=== PATIENT | female | born 1955 | race Caucasian/White ===

== ENCOUNTER 2016-11-30 16:01 | Outpatient (CLI) | payer OTHER | END 2016-11-30 16:02 | disposition home or self-care (01) | DX: R05 Cough (principal) ==

== ENCOUNTER 2019-03-02 04:17 | Outpatient (CLI) | payer OTHER | END 2019-03-02 04:18 | disposition critical access hospital (66) | LOC: EMS 04:17 | PROVIDERS: ATTEND Surgery | DX: T42.4X2A Poisoning by benzodiazepines, intentional self-harm, initial encounter (principal) | CPT/HCPCS: A0425; A0427 ==

== ENCOUNTER 2019-03-02 04:46 | Observation (INO) | payer OTHER ==
[2019-03-02] MEDS ORDERED: OLANZapine 10 MG VIAL IM STA (05:04)
--- NOTE | 2019-03-02 05:04 | ED Physician Documentation ---
<Dusty Calabrese - Last Filed: 03/03/19 03:52> PD HPI OVERDOSE - Stated complaint Stated Complaint: OD - Chief complaint Chief Complaint: MHE - History obtained from History obtained from: Family, EMS, Police - History of Present Illness Timing - onset: Enter time (03:15), Today Subtance(s) ingested: Single Associated symptoms: Decreased responsiveness, Altered mental status, Agitated Treatment ANESTHESIOLOGIST/PHYSICIAN: Narcan Similar symptoms before: Has not had sx before Recently seen: Not recently seen - Additional information Additional information: Patient cannot contribute to HPI/ROS due to severe AMS. HPI is from , EMS, and police. A few weeks ago, found out that patient had cheated on him many years ago. Over the past week, he had become increasingly upset over this and was asking her details about the incident with increasing frequency and intensity. He feels remorse over doing this; he says this is why she overdosed tonight. At approximately 3:15 AM this morning, patient reported to that she had overdosed and he called 911. Per police report, they arrived to find patient awake but drowsy; she told police that she had taken approximately 50 tablets of 0.5mg lorazepam (bottle that was brought to ED and is empty indicates it was filled in 2014 and only 20 tablets, but daughter says patient has horded medications in the past). Patient told police that she had planned to next overdose on blood pressure medications. Patient rapidly became increasingly drowsy and then stopped responding verbally. Medics arrived to find patient not responding verbally nor following any commands nor opening her eyes, but she was flailing and straining against attempts to restrain her, and she is thus brought to ED in 4-point restraints. She was given narcan en route with no effect. is unsure of what medications patient is prescribed. He has cancer as well as other medical problems and thus has a number of medications in the house; he is confident that she did not fall/hit head, and feels it is unlikely that she took any of his medications. Review of Systems Unable to obtain: Unresponsive PD PAST MEDICAL HISTORY - Past Medical History Other Past Medical History: unknown - Present Medications Home Medications: Ambulatory Orders Medication Instructions Recorded Confirmed Amitriptyline [Elavil] 30 mg PO QPM 03/02/19 03/02/19 Codeine/Butalbital/ASA/Caffein 1 - 2 cap PO Q4H PRN MDD 6 caps 03/02/19 03/02/19 [Butalbital Comp-Codeine #3 Cap] Estradiol [Climara 0.1 mg] 1 each TD Q7D 03/02/19 03/02/19 Gabapentin [Neurontin] 600 mg PO HS 03/02/19 03/02/19 Hydroxychloroquine [Plaquenil] 300 mg PO DAILY 03/02/19 03/02/19 - Allergies Allergies/Adverse Reactions: Allergies Allergy/AdvReac Type Severity Reaction Status Date / Time clavulanic acid Allergy Anaphylaxis Verified 03/02/19 15:51 promethazine [From Phenergan] Allergy Anaphylaxis Verified 03/02/19 15:51 diphenhydramine AdvReac Rash Verified 03/02/19 15:51 [From Benadryl] - Living Situation Living Situation: reports: With spouse/s.o. Living Arrangement: reports: At home - Social History Does the pt drink ETOH?: Yes PD ED PE NORMAL - Vitals Vital signs reviewed: Yes - General General: Well developed/nourished, Other (straining against restraints but nonverbal, does not open eyes, and does not follow commands. ) - HEENT HEENT: Atraumatic, PERRL, Moist mucous membranes - Cardiac Cardiac: No murmur - Respiratory Respiratory: No respiratory distress, Clear bilaterally - Abdomen Abdomen: Normal bowel sounds, Soft, Non distended - Derm Derm: Normal color, Warm and dry - Extremities Extremities: No edema PD ED PE EXPANDED - Cardiac Cardiac: Regular Rate, Tachy - GCS Eye Opening: None Motor: Localizes to Pain Verbal: None Total: 7 Results - EKG (time done) 09:25 Rhythm: Other PD MEDICAL DECISION MAKING - ED course Complexity details: reviewed results, re-evaluated patient, considered differential, d/w family ED course: given zyprexa 5mg IM shortly after arrival; this was given for sedation so that she doesn't continue to strain against restraints (could cause rhabdomyolysis). CASEY form indicates she receives regular prescriptions from PMD for butalbital/codeine. Family eventually found a card in her wallet with handwritten note indicating allergies to augmentin and phenergan, "sensitive" to benadryl. It lists her medications as hydroxycholroquine, amitryptilene, gabapentin, and "certrazine". Patient's care turned over to oncoming ED physician (Dr. Garcia) at end of my shift Departure - Departure Disposition: ED Place in Observation Clinical Impression: Attempted suicide Drug overdose Qualifiers: Encounter type: initial encounter Injury intent: undetermined intent Qualified Code(s): T50.904A - Poisoning by unspecified drugs, medicaments and biological substances, undetermined, initial encounter Discharge Date/Time: 03/02/19 17:28 <Parish Garcia - Last Filed: 03/03/19 10:27> Results - Vitals Vitals: Vital Signs - 24 hr 03/02/19 03/02/19 03/02/19 11:10 12:15 12:58 Heart Rate 105 H 78 84 Respiratory 19 14 16 Rate Blood Pressure 155/80 H 111/66 113/65 O2 Saturation 96 100 98 03/02/19 03/02/19 13:15 13:49 Heart Rate 79 77 Respiratory 15 16 Rate Blood Pressure 113/63 126/80 O2 Saturation 100 100 Oxygen O2 Source Room air - EKG (time done) 09:25 Rate: Rate (enter#) (90) Rhythm: NSR, Other (Premature atrial complex) [place]: Normal Intervals: Normal OR, QRS normal QRS: LVH Ischemia: Normal ST segments Computer interpretation: Agree with computer - Labs Labs: Laboratory Tests 03/02/19 03/02/19 03/02/19 05:27 05:27 08:36 WBC 7.7 RBC 4.42 Hgb 14.3 Hct 42.8 MCV 96.7 MCH 32.2 H MCHC 33.4 RDW 14.6 Plt Count 302 MPV 7.8 L Neut # (Auto) 5.5 Lymph # (Auto) 1.5 [place] # (Auto) 0.6 Eos # (Auto) 0.1 Baso # (Auto) 0.1 Absolute Nucleated RBC 0.01 Nucleated RBC % 0.1 Sodium 139 Potassium 3.7 Chloride 100 L Carbon Dioxide 24 Anion Gap 15.0 H BUN 14 Creatinine 0.6 Estimated GFR (MDRD) 101 Glucose 109 H Calcium 9.1 Total Bilirubin 0.8 AST 29 ALT 28 Alkaline Phosphatase 55 Total Protein 7.0 Albumin 4.5 Globulin 2.5 Albumin/Globulin Ratio 1.8 Lipase 26 Urine Color YELLOW Urine Clarity CLEAR Urine pH 6.5 Ur Specific [place] 1.015 Urine Protein NEGATIVE Urine Glucose (UA) NEGATIVE Urine Ketones 40 H Urine Occult Blood NEGATIVE Urine Nitrite NEGATIVE Urine Bilirubin NEGATIVE Urine Urobilinogen 0.2 (NORMAL) Ur Leukocyte Esterase NEGATIVE Ur Microscopic Review NOT INDICATED Urine Culture Comments NOT INDICATED Salicylates < 6.0 Urine Opiates Screen POSITIVE H Ur Oxycodone Screen NEGATIVE Urine Methadone Screen NEGATIVE Ur Propoxyphene Screen NEGATIVE Acetaminophen < 10 L Ur Barbiturates Screen POSITIVE H Ur Tricyclics Screen POSITIVE H Ur Phencyclidine Scrn NEGATIVE Ur Amphetamine Screen NEGATIVE U Methamphetamines Scrn NEGATIVE U Benzodiazepines Scrn POSITIVE H Urine Cocaine Screen NEGATIVE U Cannabinoids Screen POSITIVE H Ethyl Alcohol < 5.0 PD MEDICAL DECISION MAKING - ED course ED course: At change of shift the patient's care was turned over to me for continued evaluation and treatment of her medical condition, and eventual mental health e valuation. After several more hours of observation, the patient remained somnolent, responding to noxious stimulation only. There was no coherent verbal response. She would move all extremities, with no lateralizing signs. She remained hemodynamically stable. It became clear that she would require more time for mental status clearing that would be reasonable to hold her in the emergency department. I discussed her condition with Dr. Davidson, who accepts her for further evaluation and treatment.
[2019-03-02 05:36] LABS: BASOPHILS # (AUTO) 0.1 10^3/uL (0.0-0.1); BASOPHILS % (AUTO) 0.7 %; EOSINOPHILS # (AUTO) 0.1 10^3/uL (0.0-0.7); HGB - HEMOGLOBIN 14.3 g/dL (12.0-16.0); LYMPHOCYTES # (AUTO) 1.5 10^3/uL (1.5-3.5); LYMPHOCYTES % (AUTO) 18.9 %; MEAN CORPUSCULAR HEMOGLOBIN 32.2 pg (27.0-31.0); MEAN CORPUSCULAR HGB CONC 33.4 g/dL (32.0-36.0); MEAN CORPUSCULAR VOLUME 96.7 fL (81.0-99.0); MEAN PLATELET VOLUME 7.8 fL (7.9-10.8); MONOCYTES # (AUTO) 0.6 10^3/uL (0.0-1.0); MONOCYTES % (AUTO) 7.5 %; NEUTROPHILS # (AUTO) 5.5 10^3/uL (1.5-6.6); NEUTROPHILS % (AUTO) 71.9 %; PLT - PLATELET COUNT 302 10^3/uL (130-450); RED BLOOD COUNT 4.42 10^6/uL (4.20-5.40); RED CELL DISTRIBUTION WIDTH 14.6 % (12.0-15.0); WHITE BLOOD COUNT 7.7 x10^3/uL (4.8-10.8)
[2019-03-02 05:50] LABS: ACETAMINOPHEN < 10 ug/mL (10-30); ALBUMIN 4.5 g/dL (3.2-5.5); ALBUMIN/GLOBULIN RATIO 1.8 (1.0-2.2); ALKALINE PHOSPHATASE 55 IU/L (42-121); ALT ALANINE AMINOTRANSFERASE 28 IU/L (10-60); AST ASPARTATE AMINOTRANSFERASE 29 IU/L (10-42); BILIRUBIN,TOTAL 0.8 mg/dL (0.2-1.0); BUN - BLOOD UREA NITROGEN 14 mg/dL (6-20); CALCIUM 9.1 mg/dL (8.5-10.3); CARBON DIOXIDE - CO2 24 mmol/L (21-32); CHLORIDE 100 mmol/L (101-111); CREATININE 0.6 mg/dL (0.4-1.0); GFR - MDRD 101 (>89); GLUCOSE 109 mg/dL (70-100); LIPASE 26 U/L (22-51); SALICYLATE < 6.0 mg/dL; SODIUM 139 mmol/L (135-145)
[2019-03-02 08:48] LABS: MUDS CUTOFF CONCENTRATIONS CUTOFF CONC BELOW:
[2019-03-02 08:52] LABS: BILIRUBIN,URINE NEGATIVE (NEGATIVE); CLARITY,URINE CLEAR (CLEAR); GLUCOSE, URINE (UA) NEGATIVE (NEGATIVE); KETONES,URINE (UA) 40 mg/dL (NEGATIVE); LEUKOCYTE ESTERASE, URINE NEGATIVE (NEGATIVE); NITRITE,URINE NEGATIVE (NEGATIVE); OCCULT BLOOD,URINE NEGATIVE (NEGATIVE); PH,URINE 6.5 PH (5.0-7.5); PROTEIN,URINE NEGATIVE (NEGATIVE); UROBILINOGEN,URINE 0.2 (NORMAL) E.U./dL (NORMAL)
[2019-03-02 09:05] LABS: AMPHETAMINE SCREEN,URINE NEGATIVE (NEGATIVE); BENZODIAZEPINES SCREEN, URINE POSITIVE (NEGATIVE); COCAINE SCREEN URINE NEGATIVE (NEGATIVE); METHADONE SCREEN, URINE NEGATIVE (NEGATIVE); METHAMPHETAMINES SCREEN, URINE NEGATIVE (NEGATIVE); OPIATE SCREEN, URINE POSITIVE (NEGATIVE); OXYCODONE SCREEN, URINE NEGATIVE (NEGATIVE); PROPOXYPHENE SCREEN, URINE NEGATIVE (NEGATIVE); TRICYCLIC ANTIDEPRESSANT,URINE POSITIVE (NEGATIVE)
[2019-03-02] MEDS ORDERED: SODIUM CHLORIDE FLUSH 0.9% 10 ML SYRINGE IVP PRN (14:14)
[2019-03-02] MEDS ORDERED: ACETAMINOPHEN 325 MG TABLET PO PRN (14:14)
[2019-03-02] MEDS ORDERED: ONDANSETRON 4 MG/2 ML VIAL IVP PRN (14:14)
[2019-03-02 16:34] LABS: CK- CREATINE KINASE 536 IU/L (22-269)
[2019-03-02 16:38] LABS: KETONES, SERUM (ACETEST) SMALL (NEGATIVE)
[2019-03-02] MEDS ORDERED: SODIUM CHLORIDE 0.9% 1,000 ML IV SCH (17:00)
[2019-03-02] MEDS ORDERED: SODIUM CHLORIDE FLUSH 0.9% 10 ML SYRINGE ONE (17:16)
--- NOTE | 2019-03-02 17:20 | HISTORY & PHYSICAL EXAMINATION ---
Chief Complaint - Chief Complaint Chief Complaint: suicide attempt History of Present Illness - History of Present Illness HPI Comment/Other: 63-yrs-old female with a PMH significant for Depression, migraine headache, who was brought by EMS to ER for evaluation of suicide attempt. Upon examination to pt, pt is barely response, pt did not open her eyes or any verbal response. Pt's daughter and a pt's friend are at the pt's bedside at ER. Pt's daughter gave a brief story. She state her mother and father had intensive upset on last night. Between 3:30 am and 4:00 am, she believed her mother over-took "gabapentin". Per ER report. Pt's had increasing frequency and intensity upset with pt about a past relationship. He feels why she overdosed last night. Per ER note, pt's report in ER, at approximately 3:15 AM this morning, patient r eported to that she had overdosed. In ER provider's report, pt told police she took approximately 50 tablets of 0.5mg lorazepam, pt became increasingly drowsy and then stopped responding verbally, pt was given narcan without effect, pt's did not ensure what medications pt took at this time. Pt was given zyprexa 5mg IM shortly after arrival In the ER so that pt doesn't continue to strain against restraints. pt's UDS reveals positive for opiates, barbiturates, tricyclics, benzodiazepines, cannabis. Blood test reveals elevated anion cap to 15, slight elevated CK to 500, small serum ketones. pt is admitted for above medical condition. History - Past Medical History Other Past Medical History: unknown - Family & Social History Family History Comment/Other: pt is barely response, no verbal response. Living arrangement: At home Living Situation: With spouse/s.o. Meds/Allgy - Home Medications Home Medications: Ambulatory Orders Medication Instructions Recorded Confirmed Amitriptyline [Elavil] 30 mg PO QPM 03/02/19 03/02/19 Codeine/Butalbital/ASA/Caffein 1 - 2 cap PO Q4H PRN MDD 6 caps 03/02/19 03/02/19 [Butalbital Comp-Codeine #3 Cap] Estradiol [Climara 0.1 mg] 1 each TD Q7D 03/02/19 03/02/19 Gabapentin [Neurontin] 600 mg PO HS 03/02/19 03/02/19 Hydroxychloroquine [Plaquenil] 300 mg PO DAILY 03/02/19 03/02/19 - Allergies Allergies/Adverse Reactions: Allergies Allergy/AdvReac Type Severity Reaction Status Date / Time clavulanic acid Allergy Anaphylaxis Verified 03/02/19 15:51 promethazine [From Phenergan] Allergy Anaphylaxis Verified 03/02/19 15:51 diphenhydramine AdvReac Rash Verified 03/02/19 15:51 [From Benadryl] Review of Systems - Other Findings Other Findings: pt has no verbal response. Exam - Vital Signs Reviewed Vital Signs: Yes Vital Signs: Vital Signs x48h Pulse Resp BP Pulse Ox 03/02/19 16:15 62 16 114/63 95 03/02/19 13:49 77 16 126/80 100 03/02/19 13:15 79 15 113/63 100 03/02/19 12:58 84 16 113/65 98 03/02/19 12:15 78 14 111/66 100 03/02/19 11:10 105 H 19 155/80 H 96 03/02/19 10:15 103 H 16 124/89 H 96 - Physical Exam General Appearance: positive: No acute distress, Alert, Lethargic Eyes Bilateral: positive: Normal inspection, PERRL, No lid inflammation, Conjunctivae nml ENT: positive: ENT inspection nml, Pharynx nml, No signs of dehydration. negative: Purulent nasal drainage, Pharyngeal erythema, Oral lesions Neck: positive: Nml inspection, Thyroid nml, No JVD, Trachea midline. negative: Thyromegaly, Lymphadenopathy (R), Lymphadenopathy (L), Stiff neck, Swelling/b ruising, Tracheal deviation Respiratory: positive: Chest non-tender, No respiratory distress, Breath sounds nml. negative: Wheezes, Rales, Rhonchi Cardiovascular: positive: Regular rate & rhythm, No murmur, No gallop. negative: Irregularly irregular, Extrasystoles, JVD present, Systolic murmur, Diastolic murmur Peripheral Pulses: positive: 2+ Abdomen: positive: Non-tender, No organomegaly, Nml bowel sounds, No distention. negative: Tenderness, Guarding, Rebound Back: positive: Nml inspection. negative: CVA tenderness (R), CVA tenderness (L) Skin: positive: Color nml, No rash, Warm, Dry. negative: Cyanosis, Diaphoresis, Pallor, Skin rash Extremities: positive: Non-tender, Nml appearance. negative: Calf tenderness, Manny's sign/cords Neurologic/Psychiatric: negative: Facial droop Sepsis Event Note (H) - Evaluation Current Stage of Sepsis: Ruled out Conclusion/Plan - Problem List (1) Attempted suicide Conclusion/Plan: pt was reported to overdose of Ativan but exactly what kind of medication pt was overdose is unsure. IVF of NS neuro check intensively tele and vital monitor consult with director of social work followup hospital suicide protocol daily lab and vital monitor hold pt's all her home meds now (2) Drug overdose Conclusion/Plan: UDS reveals positive for 5 meds, unsure which is exact pt was overdosed. hold pt's all home meds now check pt's CK continue IVF of NS neuro check tele monitor Qualifiers: Encounter type: initial encounter Injury intent: undetermined intent Qualified Code(s): T50.904A - Poisoning by unspecified drugs, medicaments and biological substances, undetermined, initial encounter (3) Depression Conclusion/Plan: hx of Depression, will reconcile after pt return her baseline condition. - Lab Results Fish Bones: 03/03/19 05:17 03/03/19 05:17 Core Measures - Anticipated LOS I expect patient to be DC'd or transferred within 96 hours.: Yes - DVT/VTE - Prophylaxis VTE/DVT Device ordered at admit?: Yes VTE/DVT Prophylaxis med ordered at admit?: Yes
--- NOTE | 2019-03-02 18:55 | ANESTHESIA PROCEDURE NOTE ---
Height and Weight: Height 5 ft 1 in Weight (kg) 58 kg Body Mass Index 24.1 Vital Signs: Temp Pulse Resp BP Pulse Ox 36.8 C 93 14 131/74 H 95 03/02/19 17:54 03/02/19 17:54 03/02/19 17:54 03/02/19 17:54 03/02/19 16:15 Allergies clavulanic acid Allergy (Verified 03/02/19 15:51) Anaphylaxis promethazine [From Phenergan] Allergy (Verified 03/02/19 15:51) Anaphylaxis diphenhydramine [From Benadryl] Adverse Reaction (Verified 03/02/19 15:51) Rash Anesth Central Line Template - Central Line Other Info/Details: #22 G IV started to right saphenous vein after attempting left AC and left saphenous vein. Patient tolerated well.
[2019-03-02] MEDS: SODIUM CHLORIDE 0.9% 1,000 ML IV SCH (19:03)
[2019-03-02] MEDS: SODIUM CHLORIDE FLUSH 0.9% 10 ML SYRINGE IVP SCH (19:03)
[2019-03-03] MEDS: FAMOTIDINE 20 MG TABLET PO SCH ×3 (00:19→20:59)
[2019-03-03] MEDS: SODIUM CHLORIDE FLUSH 0.9% 10 ML SYRINGE IVP SCH ×4 (00:19→23:52)
[2019-03-03] MEDS: SODIUM CHLORIDE 0.9% 1,000 ML IV SCH ×4 (01:28→22:29)
[2019-03-03 05:56] LABS: BASOPHILS % (AUTO) 0.7 %; EOSINOPHILS # (AUTO) 0.1 10^3/uL (0.0-0.7); EOSINOPHILS % (AUTO) 1.4 %; HGB - HEMOGLOBIN 12.7 g/dL (12.0-16.0); LYMPHOCYTES # (AUTO) 1.4 10^3/uL (1.5-3.5); LYMPHOCYTES % (AUTO) 24.5 %; MEAN CORPUSCULAR HEMOGLOBIN 32.6 pg (27.0-31.0); MEAN CORPUSCULAR HGB CONC 33.4 g/dL (32.0-36.0); MEAN CORPUSCULAR VOLUME 97.4 fL (81.0-99.0); MEAN PLATELET VOLUME 7.4 fL (7.9-10.8); MONOCYTES # (AUTO) 0.4 10^3/uL (0.0-1.0); MONOCYTES % (AUTO) 6.9 %; NEUTROPHILS # (AUTO) 3.8 10^3/uL (1.5-6.6); NEUTROPHILS % (AUTO) 66.5 %; PLT - PLATELET COUNT 249 10^3/uL (130-450); RED BLOOD COUNT 3.89 10^6/uL (4.20-5.40); RED CELL DISTRIBUTION WIDTH 14.6 % (12.0-15.0); WHITE BLOOD COUNT 5.7 x10^3/uL (4.8-10.8)
[2019-03-03 06:03] LABS: ALBUMIN 3.4 g/dL (3.2-5.5); ALBUMIN/GLOBULIN RATIO 1.7 (1.0-2.2); BILIRUBIN,TOTAL 0.6 mg/dL (0.2-1.0); CALCIUM 7.9 mg/dL (8.5-10.3); CREATININE 0.6 mg/dL (0.4-1.0); TOTAL PROTEIN 5.4 g/dL (6.7-8.2)
[2019-03-03] MEDS ORDERED: POTASSIUM CHLORIDE 20 MEQ TABLET PO SCH (08:00)
[2019-03-03] MEDS: POLYETHYLENE GLYCOL 3350 17 GM PACKET PO SCH (10:53)
[2019-03-03] MEDS: ENOXAPARIN 40 MG/0.4 ML SYRINGE SUBQ SCH (10:53)
--- NOTE | 2019-03-03 13:39 | PROVIDER PROGRESS NOTE ---
Subjective - Prog Note Date Prog Note Date: 03/03/19 - Subjective Pt reports feeling: Improved Subjective: pt is alert and following commands, open her eye and answer questions but her answers are incorrect. She is confused, she did not know where she is and the date of today. She denies headache, chest pain, shortness of breath. Current Medications - Current Medications Current Medications: Active Medications Acetaminophen (Tylenol) 650 mg PO Q4HR PRN PRN Reason: Pain 1 to 4 Last Admin: 03/03/19 11:38 Dose: 650 mg Enoxaparin Sodium (Lovenox) 40 mg SUBQ DAILY [facility] Last Admin: 03/03/19 10:53 Dose: 40 mg Famotidine (Pepcid) 20 mg PO BID [facility] Last Admin: 03/03/19 10:53 Dose: 20 mg Sodium Chloride (Normal Saline 0.9%) 1,000 mls @ 150 mls/hr IV .Q6H40M [facility] Last Admin: 03/03/19 07:18 Dose: 150 mls/hr Ondansetron HCl (Zofran Inj) 4 mg IVP Q6HR PRN PRN Reason: Nausea / Vomiting Polyethylene Glycol (Miralax) 17 gm PO DAILY [facility] Last Admin: 03/03/19 10:53 Dose: 17 gm Sodium Chloride (Normal Saline Flush 0.9%) 10 ml IVP PRN PRN PRN Reason: NEEDED PER PROVIDER ORDERS Sodium Chloride (Normal Saline Flush 0.9%) 10 ml IVP 0100,0900,1700 [facility] Last Admin: 03/03/19 10:41 Dose: Not Given Amitriptyline [Elavil] 30 mg PO QPM 03/02/19 Codeine/Butalbital/ASA/Caffein [Butalbital Comp-Codeine #3 Cap] 1 - 2 cap PO Q4H PRN MDD 6 caps 03/02/19 Estradiol [Climara 0.1 mg] 1 each TD Q7D 03/02/19 Gabapentin [Neurontin] 600 mg PO HS 03/02/19 Hydroxychloroquine [Plaquenil] 300 mg PO DAILY 03/02/19 Objective - Vital Signs/Intake & Output Reviewed Vital Signs: Yes Vital Signs: Vital Signs x48h Temp Pulse Resp BP BP Pulse Ox 03/03/19 12:54 36.3 C L 90 14 144/76 H 100 03/03/19 11:12 36.3 C L 88 16 143/69 H 100 03/03/19 07:18 36.3 C L 86 13 115/60 100 Intake & Output: Intake & Output 02/28/19 03/01/19 03/02/19 03/03/19 23:59 23:59 23:59 23:59 Intake Total 1987.5 Output Total 300 250 Balance -300 1737.5 - Objective General Appearance: positive: No acute distress, Alert. negative: Lethargic Eyes Bilateral: positive: Normal inspection, PERRL, No lid inflammation, Conjunctivae nml ENT: positive: ENT inspection nml, Pharynx nml, No signs of dehydration. negative: Purulent nasal drainage, Pharyngeal erythema, Oral lesions Neck: positive: Nml inspection, Thyroid nml, No JVD, Trachea midline. negative: Thyromegaly, Lymphadenopathy (R), Lymphadenopathy (L), Stiff neck, Swelling/bruising, Tracheal deviation Respiratory: positive: Chest non-tender, No respiratory distress, Breath sounds nml. negative: Wheezes, Rales, Rhonchi - Lab Results Fish Bones: 03/03/19 05:17 03/03/19 05:17 Other Labs: Lab Results x24hrs 03/03/19 03/03/19 03/03/19 Range/Units 08:35 05:17 05:17 WBC 5.7 (4.8-10.8) x10^3/uL RBC 3.89 L (4.20-5.40) 10^6/uL Hgb 12.7 (12.0-16.0) g/dL Hct 37.9 (37.0-47.0) % MCV 97.4 (81.0-99.0) fL MCH 32.6 H (27.0-31.0) pg MCHC 33.4 (32.0-36.0) g/dL RDW 14.6 (12.0-15.0) % Plt Count 249 (130-450) 10^3/uL MPV 7.4 L (7.9-10.8) fL Neut # (Auto) 3.8 (1.5-6.6) 10^3/uL Lymph # (Auto) 1.4 L (1.5-3.5) 10^3/uL [place] # (Auto) 0.4 (0.0-1.0) 10^3/uL Eos # (Auto) 0.1 (0.0-0.7) 10^3/uL Baso # (Auto) 0.0 (0.0-0.1) 10^3/uL Absolute Nucleated RBC 0.00 x10^3/uL Nucleated RBC % 0.1 /100WBC Sodium 138 (135-145) mmol/L Potassium 3.3 L (3.5-5.0) mmol/L Chloride 107 (101-111) mmol/L Carbon Dioxide 22 (21-32) mmol/L Anion Gap 9.0 (6-13) BUN 19 (6-20) mg/dL Creatinine 0.6 (0.4-1.0) mg/dL Estimated GFR (MDRD) 101 (>89) Glucose 90 (70-100) mg/dL Lactic Acid (0.5-2.2) mmol/L Calcium 7.9 L (8.5-10.3) mg/dL Magnesium 2.0 (1.7-2.8) mg/dL Total Bilirubin 0.6 (0.2-1.0) mg/dL AST 30 (10-42) IU/L ALT 21 (10-60) IU/L Alkaline Phosphatase 48 (42-121) IU/L Total Creatine Kinase (22-269) IU/L Troponin I (<0.49) ng/mL Total Protein 5.4 L (6.7-8.2) g/dL Albumin 3.4 (3.2-5.5) g/dL Globulin 2.0 L (2.1-4.2) g/dL Albumin/Globulin Ratio 1.7 (1.0-2.2) Serum Ketones SMALL H (NEGATIVE) 03/02/19 03/02/19 03/02/19 Range/Units 16:09 16:09 16:09 WBC (4.8-10.8) x10^3/uL RBC (4.20-5.40) 10^6/uL Hgb (12.0-16.0) g/dL Hct (37.0-47.0) % MCV (81.0-99.0) fL MCH (27.0-31.0) pg MCHC (32.0-36.0) g/dL RDW (12.0-15.0) % Plt Count (130-450) 10^3/uL MPV (7.9-10.8) fL Neut # (Auto) (1.5-6.6) 10^3/uL Lymph # (Auto) (1.5-3.5) 10^3/uL [place] # (Auto) (0.0-1.0) 10^3/uL Eos # (Auto) (0.0-0.7) 10^3/uL Baso # (Auto) (0.0-0.1) 10^3/uL Absolute Nucleated RBC x10^3/uL Nucleated RBC % /100WBC Sodium (135-145) mmol/L Potassium (3.5-5.0) mmol/L Chloride (101-111) mmol/L Carbon Dioxide (21-32) mmol/L Anion Gap (6-13) BUN (6-20) mg/dL Creatinine (0.4-1.0) mg/dL Estimated GFR (MDRD) (>89) Glucose (70-100) mg/dL Lactic Acid 0.7 (0.5-2.2) mmol/L Calcium (8.5-10.3) mg/dL Magnesium (1.7-2.8) mg/dL Total Bilirubin (0.2-1.0) mg/dL AST (10-42) IU/L ALT (10-60) IU/L Alkaline Phosphatase (42-121) IU/L Total Creatine Kinase 536 H (22-269) IU/L Troponin I < 0.04 (<0.49) ng/mL Total Protein (6.7-8.2) g/dL Albumin (3.2-5.5) g/dL Globulin (2.1-4.2) g/dL Albumin/Globulin Ratio (1.0-2.2) Serum Ketones SMALL H (NEGATIVE) Sepsis Event Note (H) - Evaluation Current Stage of Sepsis: Ruled out Assessment/Plan - Problem List (1) Attempted suicide Impression: 03/03 pt follow command but she still confused continue IVF of NS start diet, pt feel hungry neuro check intensively tele and vital monitor consult with family welfare social work professor followup hospital suicide protocol daily lab and vital monitor still hold pt's all her home meds now pt was reported to overdose of Ativan but exactly what kind of medication pt was overdose is unsure. IVF of NS neuro check intensively tele and vital monitor consult with family welfare social work professor followup hospital suicide protocol daily lab and vital monitor hold pt's all her home meds now (2) Drug overdose Conclusion/Plan: UDS reveals positive for 5 meds, unsure which is exact pt was overdosed. hold pt's all home meds now check pt's CK continue IVF of NS neuro check tele monitor (3) Depression Conclusion/Plan: 03/03 will reconcile after pt return her baseline condition after pt turn to clear mind. hx of Depression, will reconcile after pt return her baseline condition. (2) Drug overdose Qualifiers: Encounter type: initial encounter Injury intent: undetermined intent Qu alified Code(s): T50.904A - Poisoning by unspecified drugs, medicaments and biological substances, undetermined, initial encounter
[2019-03-04] MEDS: SODIUM CHLORIDE 0.9% 1,000 ML IV SCH (05:29)
[2019-03-04 05:44] LABS: BASOPHILS # (AUTO) 0.1 10^3/uL (0.0-0.1); BASOPHILS % (AUTO) 1.1 %; EOSINOPHILS # (AUTO) 0.1 10^3/uL (0.0-0.7); HGB - HEMOGLOBIN 12.6 g/dL (12.0-16.0); LYMPHOCYTES # (AUTO) 1.4 10^3/uL (1.5-3.5); LYMPHOCYTES % (AUTO) 25.5 %; MEAN CORPUSCULAR HEMOGLOBIN 32.6 pg (27.0-31.0); MEAN CORPUSCULAR HGB CONC 33.5 g/dL (32.0-36.0); MEAN CORPUSCULAR VOLUME 97.3 fL (81.0-99.0); MEAN PLATELET VOLUME 7.3 fL (7.9-10.8); MONOCYTES # (AUTO) 0.4 10^3/uL (0.0-1.0); MONOCYTES % (AUTO) 7.6 %; NEUTROPHILS # (AUTO) 3.5 10^3/uL (1.5-6.6); NEUTROPHILS % (AUTO) 63.8 %; PLT - PLATELET COUNT 261 10^3/uL (130-450); RED BLOOD COUNT 3.87 10^6/uL (4.20-5.40); RED CELL DISTRIBUTION WIDTH 14.4 % (12.0-15.0); WHITE BLOOD COUNT 5.6 x10^3/uL (4.8-10.8)
[2019-03-04 05:55] LABS: ALBUMIN 3.2 g/dL (3.2-5.5); ALBUMIN/GLOBULIN RATIO 1.6 (1.0-2.2); BILIRUBIN,TOTAL 0.6 mg/dL (0.2-1.0); CALCIUM 7.9 mg/dL (8.5-10.3); CREATININE 0.5 mg/dL (0.4-1.0); TOTAL PROTEIN 5.2 g/dL (6.7-8.2)
[2019-03-04] MEDS ORDERED: SODIUM CHLORIDE 0.9% 1,000 ML IV SCH (08:07)
[2019-03-04] MEDS: ENOXAPARIN 40 MG/0.4 ML SYRINGE SUBQ SCH (09:19)
[2019-03-04] MEDS: POLYETHYLENE GLYCOL 3350 17 GM PACKET PO SCH (09:19)
[2019-03-04] MEDS: SODIUM CHLORIDE FLUSH 0.9% 10 ML SYRINGE IVP SCH (09:20)
[2019-03-04] MEDS: FAMOTIDINE 20 MG TABLET PO SCH (09:20)
[2019-03-04 09:46] LABS: CK- CREATINE KINASE 269 IU/L (22-269)
[2019-03-04 09:55] LABS: KETONES, SERUM (ACETEST) NEGATIVE (NEGATIVE)
[2019-03-04] MEDS ORDERED: CODEINE PO PRN (09:59)
[2019-03-04] MEDS ORDERED: [UNRECOGNIZED DRUG - OTHER] PO PRN (09:59)
[2019-03-04] MEDS ORDERED: BUTALBITAL PO PRN (09:59)
[2019-03-04] MEDS ORDERED: CAFFEIN PO PRN (09:59)
[2019-03-04] MEDS ORDERED: ASA PO PRN (09:59)
[2019-03-04] MEDS ORDERED: GABAPENTIN 300 MG CAPSULE PO SCH (10:00)
--- NOTE | 2019-03-04 12:57 | DISCHARGE SUMMARY ---
Discharge Summary Discharge Date: 03/04/19 Discharging Provider: FELIX Primary Care Provider: Angy Ferguson Condition at Discharge: Stable Discharge Disposition: 01 Home, Self Care Discharge Facility Name: home - DIAGNOSES Admission Diagnoses: (1) Attempted suicide (2) Drug overdose (3) Depression Discharge Diagnoses with Status of Each Condition: (1) Attempted suicide (2) Drug overdose (3) Depression - HPI History of Present Illness: 63-yrs-old female with a PMH significant for Depression, migraine headache, who was brought by EMS to ER for evaluation of suicide attempt. Upon examination to pt, pt is barely response, pt did not open her eyes or any verbal response. Pt's daughter and a pt's friend are at the pt's bedside at ER. Pt's daughter gave a brief story. She state her mother and father had intensive upset on last night. Between 3:30 am and 4:00 am, she believed her mother over-took "gabapentin". Per ER report. Pt's had increasing frequency and intensity upset with pt about a past relationship. He feels why she overdosed last night. Per ER note, pt's report in ER, at approximately 3:15 AM this morning, patient reported to that she had overdosed. In ER provider's report, pt told police she took approximately 50 tablets of 0.5mg lorazepam, pt became increasingly drowsy and then stopped responding verbally, pt was given narcan without effect, pt's did not ensure what medications pt took at this time. Pt was given zyprexa 5mg IM shortly after arrival In the ER so that pt doesn't continue to strain against restraints. pt's UDS reveals positive for opiates, barbiturates, tricyclics, benzodiazepines, cannabis. Blood test reveals elevated anion cap to 15, slight elevated CK to 500, small serum ketones. pt is admitted for above medical condition. - CONSULTS | PROCEDURES Consultations: social media sr strategy manager - HOSPITAL COURSE Hospital Course: 1) Attempted suicide Pt is alert, and oriented plus three now. Pt has no complaint and stable social media sr strategy manager told me pt can be safe to be d/c to home from SW's standpoint. pt told me she will never do it again. (2) Drug overdose Pt is alert, and oriented plus three now. Pt has no complaint and stable social media sr strategy manager told me pt can be safe to be d/c to home from SW's standpoint. social media sr strategy manager with pt's family has a safety plan for pt safely to take medication. (3) Depression stable. Pt has no complaint. resume home regimen. followup PCP, and psychiatrist as out-pt - ALLERGIES Allergies/Adverse Reactions: Allergies Allergy/AdvReac Type Severity Reaction Status Date / Time clavulanic acid Allergy Anaphylaxis Verified 03/02/19 15:51 promethazine [From Phenergan] Allergy Anaphylaxis Verified 03/02/19 15:51 diphenhydramine AdvReac Rash Verified 03/02/19 15:51 [From Benadryl] - MEDICATIONS Home Medications: Ambulatory Orders Medication Instructions Recorded Confirmed Amitriptyline [Elavil] 30 mg PO QPM 03/02/19 03/02/19 Codeine/Butalbital/ASA/Caffein 1 - 2 cap PO Q4H PRN MDD 6 caps 03/02/19 03/02/19 [Butalbital Comp-Codeine #3 Cap] Estradiol [Climara 0.1 mg] 1 each TD Q7D 03/02/19 03/02/19 Gabapentin [Neurontin] 600 mg PO HS 03/02/19 03/02/19 Hydroxychloroquine [Plaquenil] 300 mg PO DAILY 03/02/19 03/02/19 - PHYSICAL EXAM AT DISCHARGE General Appearance: positive: No acute distress, Alert. negative: Lethargic Eyes Bilateral: positive: Normal inspection, PERRL, No lid inflammation, Conjunctivae nml ENT: positive: ENT inspection nml, Pharynx nml, No signs of dehydration. negative: Purulent nasal drainage, Pharyngeal erythema, Oral lesions Neck: positive: Nml inspection, Thyroid nml, No JVD, Trachea midline. negative: Thyromegaly, Lymphadenopathy (R), Lymphadenopathy (L), Stiff neck, Swelling/bruising, Tracheal deviation Respiratory: positive: Chest non-tender, No respiratory distress, Breath sounds nml. negative: Wheezes, Rales, Rhonchi Cardiovascular: positive: Regular rate & rhythm, No murmur, No gallop. negative: Irregularly irregular, Extrasystoles, Tachycardia, Bradycardia, JVD present, Systolic murmur, Diastolic murmur Peripheral Pulses: positive: 2+ Abdomen: positive: Non-tender, No organomegaly, Nml bowel sounds, No distention. negative: Tenderness, Guarding, Rebound Back: positive: Nml inspection. negative: CVA tenderness (R), CVA tenderness (L) Skin: positive: Color nml, No rash, Warm, Dry. negative: Cyanosis, Diaphoresis, Pallor Extremities: positive: Non-tender, Full ROM, Nml appearance. negative: Calf tenderness, Joint swelling, Manny's sign/cords Neurologic/Psychiatric: positive: Oriented x3, Motor nml, Sensation nml, Mood/affect nml. negative: Weakness, Sensory loss, Facial droop, Slurred/abnml speech, Depressed mood/affect - LABS Result Diagrams: 03/04/19 05:30 03/04/19 05:30 - SEPSIS Current Stage of Sepsis: Ruled out - FOLLOW UP Follow Up: You may followup your PCP in one to two weeks. Please followup the social media sr strategy manager plan safely to have your medications. Please present ER or call 911 or your PCP if you feel need help. - TIME SPENT Time Spent in Discharge (Minutes): 50
--- NOTE | 2019-03-04 14:10 | Discharge Plan ---
Discharge Plan Disposition: 01 Home, Self Care Condition: Stable Diet: Regular Activity Restrictions: Activity as Tolerated Shower Restrictions: No (fall precaution) Additional Instructions or Follow Up instructions: You may followup your PCP in one to two weeks. Please followup the social welfare clerk plan safely to have your medications. Please present ER or call 911 or your PCP if you feel the needed. No Smoking: If you smoke, Please STOP! Call for help. Follow-up with: Angy Feldman PA-C [Primary Care Provider] -
[2019-03-04 14:25] VITALS: BP 146/85
[2019-03-04] MEDS ORDERED: AMITRIPTYLINE 10 MG TABLET PO SCH (21:00)
[2019-03-05] MEDS ORDERED: HYDROXYCHLOROQUINE 200 MG TABLET PO SCH (09:00)
[2019-03-07 16:32] LABS: CK-BB NONE DETECTED % of total (NONE DETECTED); CK-MB 0 % of total (<5); CK-MM 100 % of total (95-100)
== END 2019-03-04 14:33 | disposition home or self-care (01) ==
LOC: EDUNIT# → ED 04:46 → MS3 14:14
PROVIDERS: ADMIT Nurse Practitioner Gerontology; ATTEND Nurse Practitioner Gerontology
DX: T50.902A Poisoning by unspecified drugs, medicaments and biological substances, intentional self-harm, initial encounter (principal); R41.82 Altered mental status, unspecified; Y92.009 Unspecified place in unspecified non-institutional (private) residence as the place of occurrence of the external cause; F32.9 Major depressive disorder, single episode, unspecified; G43.909 Migraine, unspecified, not intractable, without status migrainosus; Z78.1 Physical restraint status
CPT/HCPCS: 36415; 51701; 80053; 80320; 80329; 81003; 82009; 82550; 82552; 83605; 83690; 83735; 84484; 85025; 93005; 96360; 96361; 96372; 99284; 99285; A9270; G0378; J1650; 80306; 80307; 81001; 83880; 87086

== ENCOUNTER 2020-08-02 12:12 | Outpatient (CLI) | payer MEDICARE, OTHER | END 2020-08-02 12:13 | disposition home or self-care (01) | LOC: COV 12:12 | PROVIDERS: ATTEND Family Medicine | DX: R05 Cough (principal); R06.02 Shortness of breath; M79.10 Myalgia, unspecified site; R53.83 Other fatigue; J02.9 Acute pharyngitis, unspecified; R19.7 Diarrhea, unspecified; R09.81 Nasal congestion; R11.2 Nausea with vomiting, unspecified; Z20.828 Contact with and (suspected) exposure to other viral communicable diseases ==